=== PATIENT | female | born 1985 | race African-American/Black ===

== ENCOUNTER 2016-11-12 22:52 | Emergency (ER) | payer OTHER ==
[2016-11-13] MEDS ORDERED: CYCLOBENZAPRINE HCL 10 MG TABLET PO ONE (00:11)
[2016-11-13] MEDS ORDERED: IBUPROFEN 600 MG TABLET PO ONE (00:11)
[2016-11-13] MEDS ORDERED: LIDOCAINE 5% (700 MG) TRANSDERMAL ADH..PATCH TP ONE (00:11)
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
[2016-11-13 00:27] VITALS: BP 135/75
== END 2016-11-13 00:26 | disposition home or self-care (01) ==
LOC: ER 22:52
DX: M54.5 Low back pain (principal); V49.50XA Passenger injured in collision with unspecified motor vehicles in traffic accident, initial encounter
CPT/HCPCS: 99283

== ENCOUNTER 2017-11-01 13:18 | Emergency (ER) | payer OTHER ==
[2017-11-01] MEDS ORDERED: FAMOTIDINE 20 MG TABLET PO ONE (14:13)
[2017-11-01] MEDS ORDERED: DIPHENHYDRAMINE HCL 50 MG CAPSULE PO ONE (14:13)
[2017-11-01] MEDS ORDERED: PREDNISONE 20 MG TABLET PO ONE (14:13)
[2017-11-01] MEDS ORDERED: RINGERS SOLUTION,LACTATED 1,000 ML IV ONE (14:14)
--- NOTE | 2017-11-01 14:15 | ER Document Report ---
ED Medical Screen (RME) - General Chief Complaint: Near Syncope Stated Complaint: LIGHTHEADED Time Seen by Provider: 11/01/17 14:10 Notes: RAPID MEDICAL EVALUATION DISCLOSURE I have seen this patient as part of a Rapid Medical Evaluation and, if applicable, placed any initially appropriate orders. The patient will be seen and fully evaluated, including a full history and physical exam, by a provider ( in Main ED or Fast Track) when a room becomes available. 31-year-old female here with complaints of itching all over her body, nausea vomiting diarrhea, and lightheadedness that started 2 days ago. She does not know of anything new in her life that may be causing a possible allergic reaction. She has not tried anything for the symptoms. She has not had any full syncope. EXAM CTAB RRR Mild urticarial rash seen on legs TRAVEL OUTSIDE OF THE [place] IN LAST 30 DAYS: No - Related Data Allergies/Adverse Reactions: No Known Allergies Allergy (Verified 11/01/17 13:19) Past Medical History - Social History Chew tobacco use (# tins/day): No Frequency of alcohol use: None Drug Abuse: None Renal/ Medical History: Denies: Hx Peritoneal Dialysis Past Surgical History: Reports: Hx Section - x2 - Immunizations Immunizations up to date: Yes Hx Diphtheria, Pertussis, Tetanus Vaccination: Yes Physical Exam - Vital signs Vitals: Temp Pulse Resp BP Pulse Ox 97.9 F 81 16 102/53 L 100 11/01/17 13:30 11/01/17 13:30 11/01/17 13:30 11/01/17 13:30 11/01/17 13:30 Course - Vital Signs Vital signs: Temp Pulse Resp BP Pulse Ox 97.9 F 81 16 102/53 L 100 11/01/17 13:30 11/01/17 13:30 11/01/17 13:30 11/01/17 13:30 11/01/17 13:30
--- NOTE | 2017-11-01 15:44 | ER Document Report ---
ED General - General Chief Complaint: Near Syncope Stated Complaint: LIGHTHEADED Time Seen by Provider: 11/01/17 14:10 Notes: The patient is a 31-year-old female who presents with slightly lightheaded today. Over the past 2 days, the patient has had nausea and watery diarrhea. She says she does not feel like drinking any water due to the nausea. In addition, she is also having a pruritic rash. Patient takes a oral contraceptive pill, but still has 1-2 days of heavy vaginal bleeding at the beginning of her periods. She denies dark or bloody stools. The patient denies any new foods, new medications, trouble breathing, throat swelling, vomiting, flank pain, urinary symptoms, fevers, chest pain or tongue swelling. TRAVEL OUTSIDE OF THE [place] IN LAST 30 DAYS: No - Related Data Allergies/Adverse Reactions: No Known Allergies Allergy (Verified 11/01/17 13:19) Past Medical History - General Information source: Patient - Social History Smoking Status: Unknown if Ever Smoked Chew tobacco use (# tins/day): No Frequency of alcohol use: None Drug Abuse: None Family History: Reviewed & Not Pertinent Patient has suicidal ideation: No Patient has homicidal ideation: No Renal/ Medical History: Denies: Hx Peritoneal Dialysis Past Surgical History: Reports: Hx Section - x2 - Immunizations Immunizations up to date: Yes Hx Diphtheria, Pertussis, Tetanus Vaccination: Yes Review of Systems - Review of Systems Notes: REVIEW OF SYSTEMS: CONSTITUTIONAL: -fevers, -chills EENT: -eye pain, -difficulty swallowing, -nasal congestion CARDIOVASCULAR: -chest pain, -syncope. RESPIRATORY: -cough, -SOB GASTROINTESTINAL: -abdominal pain, +nausea, -vomiting, +watery diarrhea GENITOURINARY: -dysuria, -hematuria MUSCULOSKELETAL: -back pain, -neck pain SKIN: +pruritic rash HEMATOLOGIC: -easy bruising or bleeding. LYMPHATIC: -swollen, enlarged glands. NEUROLOGICAL: -altered mental status or loss of consciousness, -headache, - neurologic symptoms PSYCHIATRIC: -anxiety, -depression. ALL OTHER SYSTEMS REVIEWED AND NEGATIVE. Physical Exam - Vital signs Vitals: Temp Pulse Resp BP Pulse Ox 97.9 F 81 16 102/53 L 100 11/01/17 13:30 11/01/17 13:30 11/01/17 13:30 11/01/17 13:30 11/01/17 13:30 - Notes Notes: PHYSICAL EXAMINATION: GENERAL: Well-appearing, well-nourished and in no acute distress. HEAD: Atraumatic, normocephalic. EYES: Pupils equal round and reactive to light, extraocular movements intact, sclera anicteric, conjunctiva are pale. ENT: nares patent, oropharynx clear without exudates. Moist mucous membranes. NECK: Normal range of motion, supple without lymphadenopathy LUNGS: Breath sounds clear to auscultation bilaterally and equal. No wheezes rales or rhonchi. HEART: Regular rate and rhythm without murmurs ABDOMEN: Soft, nontender, normoactive bowel sounds. No guarding, no rebound. No masses appreciated. EXTREMITIES: Normal range of motion, no pitting or edema. No cyanosis. NEUROLOGICAL: Cranial nerves grossly intact. Normal speech, normal gait. Normal sensory and motor exams. PSYCH: Normal mood, normal affect. SKIN: Warm, Dry, normal turgor, no rashes or lesions noted. Course - Re-evaluation Re-evalutation: Patient with symptomatic iron deficiency anemia. She says she has heavy starts to her periods that last about 1-2 days, but she is not having any active vaginal bleeding, other than mild spotting now. She is already on a OCP. She denies dark or bloody stools. With her feeling of lightheadedness and a hemoglobin of 7.7, consented patient for a unit of PRBCs. She remains hemodynamically stable. Patient is tolerating fluids by mouth without nausea or vomiting and her abdomen is completely soft and nontender. Will discharge patient home with iron, Zofran and follow-up at sanding machine operator or tender and digital solution architect. - Vital Signs Vital signs: Temp Pulse Resp BP Pulse Ox 97.9 F 81 16 102/53 L 100 11/01/17 13:30 11/01/17 13:30 11/01/17 13:30 11/01/17 13:30 11/01/17 13:30 - Laboratory Result Diagrams: 11/01/17 15:56 11/01/17 15:56 Laboratory results interpreted by me: 11/01/17 11/01/17 11/01/17 15:56 15:56 16:00 Hgb 7.7 L Hct 26.6 L MCV 59 L MCH 17.2 L MCHC 29.0 L RDW 18.0 H Plt Count 529 H Monocytes % 13.9 H AST 63 H ALT 55 H Total Protein 8.3 H Urine Blood LARGE H Ur Leukocyte Esterase TRACE H Crossmatch 11/01/17 16:46 Hgb Hct MCV MCH MCHC RDW Plt Count Monocytes % AST ALT Total Protein Urine Blood Ur Leukocyte Esterase Crossmatch See Detail - EKG Interpretation by Me EKG shows normal: Sinus rhythm, [place], Intervals, QRS Complexes, ST-T Waves Rate: Normal When compared to previous EKG there are: No significant change Discharge - Discharge Clinical Impression: Symptomatic anemia, Urticarial rash, Nausea vomiting and diarrhea Iron deficiency anemia Qualifiers: Iron deficiency anemia type: unspecified iron deficiency Qualified Code(s): D50.9 - Iron deficiency anemia, unspecified Condition: Stable Disposition: HOME, SELF-CARE Additional Instructions: You must follow-up with a sanding machine operator or tender (Blood doctor) to have your symptoms rechecked. Take the iron pills with stool softener to help with your symptoms. Return to the ER if you notice heavy bleeding, began to feel worsening lightheadedness or you have any other concerns. Anemia, Iron Deficiency You have anemia (a lower than normal amount of red blood cells). Our tests show it's due to lack of iron in your body. In infants and children, iron deficiency is usually due to lack of iron in the diet. In adults, it's most often caused by blood loss (heavy periods or intestinal bleeding) or by . If the cause of iron deficiency is not clear, we evaluate for hidden intestinal bleeding. Another possible cause is failure to absorb iron properly. Iron-deficiency is treated with iron supplements. Iron pills can upset your stomach and cause constipation. Taking it with food decreases nausea. Expect the stool to become darker (but not black). Taking iron with a juice high in vitamin C (orange juice, tomato juice) increases absorption. You can increase your dietary iron by eating liver, oysters, and lean beef ; wheat germ, peas, and lentils; and molasses, dried prunes, spinach, and broccoli. Contact the doctor at once if you note black or tarry-looking stools, bloody vomiting, shortness of breath, chest pain, or faintness. Prescriptions: Ferrous Sulfate 325 mg PO TID 30 Days tablet Ondansetron [Zofran Odt 4 mg Tablet] 1 - 2 tab PO Q4H PRN #15 tab.rapdis PRN Reason: For Nausea/Vomiting Referrals: KEILA JOSEPH MD [ACTIVE STAFF] - Follow up as needed
[2017-11-01 16:10] LABS: ABSOLUTE EOSINOPHILS # (AUTO) 0.1 10^3/uL (0.0-0.6); ABSOLUTE LYMPHOCYTES (AUTO) 1.6 10^3/uL (0.5-4.7); ABSOLUTE MONOCYTES (AUTO) 0.8 10^3/uL (0.1-1.4); ABSOLUTE NEUT (AUTO) 3.3 10^3/uL (1.7-8.2); BASOPHILS % (AUTO) 0.9 % (0-2); EOSINOPHILS % (AUTO) 1.1 % (0-6); HEMATOCRIT 26.6 % (36.0-47.0); LYMPHOCYTES % (AUTO) 27.7 % (13-45); MEAN CORPUSCULAR HEMOGLOBIN 17.2 pg (27.0-33.4); MONOCYTES % (AUTO) 13.9 % (3-13); PLATELET COUNT 529 10^3/uL (150-450); RED BLOOD COUNT 4.49 10^6/uL (3.72-5.28); SEGMENTED NEUTROPHILS % (AUTO) 56.4 % (42-78); TOTAL CELLS COUNTED % (AUTO) 100 %; WHITE BLOOD COUNT 5.8 10^3/uL (4.0-10.5)
[2017-11-01 16:22] LABS: ALANINE AMINOTRANSFERASE 55 U/L (9-52); ALBUMIN 4.1 g/dL (3.5-5.0); ALKALINE PHOSPHATASE 94 U/L (38-126); ANION GAP 10 (5-19); ASPARTATE AMINO TRANSFERASE 63 U/L (14-36); BILIRUBIN,DIRECT 0.2 mg/dL (0.0-0.4); BILIRUBIN,TOTAL 0.2 mg/dL (0.2-1.3); BLOOD UREA NITROGEN 11 mg/dL (7-20); CALCIUM 9.3 mg/dL (8.4-10.2); CARBON DIOXIDE 26 mmol/L (22-30); CHLORIDE 104 mmol/L (98-107); GLUCOSE 103 mg/dL (75-110); POTASSIUM 4.3 mmol/L (3.6-5.0); SODIUM 139.5 mmol/L (137-145); TOTAL PROTEIN 8.3 g/dL (6.3-8.2)
[2017-11-01 16:24] LABS: AMORPHOUS SEDIMENT,URINE TRACE /HPF; APPEARANCE,URINE SLIGHTLY-CLOUDY; BILIRUBIN,URINE NEGATIVE (NEGATIVE); COLOR,URINE YELLOW; GLUCOSE, URINE NEGATIVE (NEGATIVE); KETONES,URINE NEGATIVE (NEGATIVE); LEUKOCYTE ESTERASE,URINE TRACE (NEGATIVE); NITRITE,URINE NEGATIVE (NEGATIVE); PROTEIN,URINE NEGATIVE (NEGATIVE); URINE SPECIFIC GRAVITY 1.015; UROBILINOGEN,URINE NEGATIVE mg/dL (<2.0)
[2017-11-01 16:24] LABS: HEMOGLOBIN 7.7 g/dL (12.0-15.5)
[2017-11-01 16:25] LABS: MEAN CORPUSCULAR VOLUME 59 fl (80-97)
[2017-11-01] MEDS ORDERED: NORMAL SALINE 250 ML IV PRN (16:27)
[2017-11-01 16:32] LABS: ANISOCYTOSIS 2+; HYPOCHROMASIA 3+; OVALOCYTES 1+; PLATELET CLUMPS PRESENT; PLATELET COMMENT INCREASED; POIKILOCYTOSIS 1+; POLYCHROMASIA 1+
--- NOTE | 2017-11-01 23:25 | EKG REPORT ---
SEVERITY:- NORMAL ECG - SINUS RHYTHM : Confirmed by: Flako Austin MD 01-Nov-2017 23:24:50
[2017-11-02 02:20] VITALS: BP 109/74
[2017-11-03 13:58] LABS: PATH REVIEW PATHOLOGIST REVIEWED
== END 2017-11-02 02:36 | disposition home or self-care (01) ==
LOC: ER 13:18
DX: D50.9 Iron deficiency anemia, unspecified (principal); L50.9 Urticaria, unspecified; R11.2 Nausea with vomiting, unspecified; R55 Syncope and collapse; R19.7 Diarrhea, unspecified
CPT/HCPCS: 93005; 99284; 96360; 86900; 86901; 36415; 36430; 86850; 86922; 83735; 84100; 85025; 81025; 80053; 81001; 86920; 93010; P9016; J7512; J7050; J7120

== ENCOUNTER 2018-05-03 16:35 | Emergency (ER) | payer OTHER ==
--- NOTE | 2018-05-03 17:38 | ER Document Report ---
ED Medical Screen (RME) - General Chief Complaint: Dizziness Stated Complaint: DIZZY Time Seen by Provider: 05/03/18 17:33 Notes: 32-year-old female patient with history of heavy periods. Has been feeling dizzy lightheaded, especially worse when she stands up quickly for the last 2-3 days. Is gotten worse since her period just started. She was transfused in October of this year for the same problem. Palpebral conjunctiva is pale as are the nailbeds. I have greeted and performed a rapid initial assessment of this patient. A comprehensive ED assessment and evaluation of the patient, analysis of test results and completion of the medical decision making process will be conducted by additional ED providers. TRAVEL OUTSIDE OF THE [place] IN LAST 30 DAYS: No - Related Data Allergies/Adverse Reactions: No Known Allergies Allergy (Verified 11/01/17 13:19) Past Medical History - Social History Frequency of alcohol use: None Drug Abuse: None Renal/ Medical History: Denies: Hx Peritoneal Dialysis Past Surgical History: Reports: Hx Section - x2 - Immunizations Immunizations up to date: Yes Hx Diphtheria, Pertussis, Tetanus Vaccination: Yes Physical Exam - Vital signs Vitals: Temp Pulse Resp BP Pulse Ox 98.0 F 69 16 127/75 H 100 05/03/18 16:39 05/03/18 16:39 05/03/18 16:39 05/03/18 16:39 05/03/18 16:39 Course - Vital Signs Vital signs: Temp Pulse Resp BP Pulse Ox 98.0 F 69 16 127/75 H 100 05/03/18 16:39 05/03/18 16:39 05/03/18 16:39 05/03/18 16:39 05/03/18 16:39
[2018-05-03 17:58] LABS: ABSOLUTE BASOPHILS # (AUTO) 0.1 10^3/uL (0.0-0.2); ABSOLUTE EOSINOPHILS # (AUTO) 0.2 10^3/uL (0.0-0.6); ABSOLUTE MONOCYTES (AUTO) 0.7 10^3/uL (0.1-1.4); ABSOLUTE NEUT (AUTO) 2.3 10^3/uL (1.7-8.2); BASOPHILS % (AUTO) 1.7 % (0-2); EOSINOPHILS % (AUTO) 3.9 % (0-6); HEMATOCRIT 35.8 % (36.0-47.0); HEMOGLOBIN 11.6 g/dL (12.0-15.5); LYMPHOCYTES % (AUTO) 37.9 % (13-45); MEAN CORPUSCULAR HEMOGLOBIN 25.3 pg (27.0-33.4); MEAN CORPUSCULAR HGB CONC 32.3 g/dL (32.0-36.0); MEAN CORPUSCULAR VOLUME 78 fl (80-97); MONOCYTES % (AUTO) 13.8 % (3-13); PLATELET COUNT 361 10^3/uL (150-450); RED BLOOD COUNT 4.58 10^6/uL (3.72-5.28); RED CELL DISTRIBUTION WIDTH 18.8 % (11.5-14.0); SEGMENTED NEUTROPHILS % (AUTO) 42.7 % (42-78); TOTAL CELLS COUNTED % (AUTO) 100 %; WHITE BLOOD COUNT 5.3 10^3/uL (4.0-10.5)
[2018-05-03 19:35] LABS: ALANINE AMINOTRANSFERASE 73 U/L (9-52); ALBUMIN 4.3 g/dL (3.5-5.0); ALKALINE PHOSPHATASE 132 U/L (38-126); ANION GAP 13 (5-19); ASPARTATE AMINO TRANSFERASE 74 U/L (14-36); BILIRUBIN,DIRECT 0.2 mg/dL (0.0-0.4); BILIRUBIN,TOTAL 0.2 mg/dL (0.2-1.3); BLOOD UREA NITROGEN 15 mg/dL (7-20); CALCIUM 9.6 mg/dL (8.4-10.2); CARBON DIOXIDE 26 mmol/L (22-30); CHLORIDE 103 mmol/L (98-107); GLUCOSE 94 mg/dL (75-110); POTASSIUM 4.5 mmol/L (3.6-5.0); SODIUM 141.9 mmol/L (137-145); TOTAL PROTEIN 8.5 g/dL (6.3-8.2)
--- NOTE | 2018-05-03 22:11 | RADIOLOGY REPORT (SQ) ---
EXAM DESCRIPTION: US ABDOMEN LIMITED COMPLETED DATE/TME: 05/03/2018 19:46 CLINICAL HISTORY: 32 years Female upper abdominal pain COMPARISON: None. TECHNIQUE: Transabdominal grayscale imaging performed to evaluate the abdomen. FINDINGS: Pancreas appears unremarkable. Liver is prominent measuring 19.3 cm. No focal lesion. IVC is patent. Patent hepatopedal portal vein. Unremarkable gallbladder without sludge or stones. Common duct measures 2 mm. Right kidney is unremarkable. IMPRESSION: Mildly enlarged liver No acute process in the Right upper quadrant
[2018-05-03 22:37] VITALS: BP 114/68
--- NOTE | 2018-05-03 22:37 | ER Document Report ---
ED General - General Chief Complaint: Dizziness Stated Complaint: DIZZY Time Seen by Provider: 05/03/18 17:33 Mode of Arrival: Ambulatory Information source: Patient Notes: 32-year-old female with a history of fibroids and anemia (requiring transfusions in past) presents to the emergency room with weakness and dizziness for the past 2 days. She is followed by primary care doctor (Dr. Pepper) at [facility]. She has an appointment with the supervisor blueprinting and photocopy next week. She states she started her period yesterday. She does have concerns that her blood counts have gotten lower because she has been weak. She does report being in a lot of stress lately. TRAVEL OUTSIDE OF THE [place] IN LAST 30 DAYS: No - HPI Onset: Last week Onset/Duration: Gradual Quality of pain: No pain Severity: None Pain Level: Denies Associated symptoms: denies: Chest pain, Fever, Nausea, Vomiting, Shortness of breath Exacerbated by: Denies Relieved by: Denies Similar symptoms previously: Yes Recently seen / treated by doctor: No - Related Data Allergies/Adverse Reactions: No Known Allergies Allergy (Verified 11/01/17 13:19) Past Medical History - General Information source: Patient - Social History Smoking Status: Never Smoker Cigarette use (# per day): No Chew tobacco use (# tins/day): No Frequency of alcohol use: None Drug Abuse: None Lives with: Family Family History: Reviewed & Not Pertinent Patient has suicidal ideation: No Patient has homicidal ideation: No - Past Medical History Cardiac Medical History: Reports: None Pulmonary Medical History: Reports: None EENT Medical History: Reports: None Neurological Medical History: Reports: None Endocrine Medical History: Reports: None Renal/ Medical History: Reports: None. Denies: Hx Peritoneal Dialysis Malignancy Medical History: Reports: None GI Medical History: Reports: None Musculoskeletal Medical History: Reports None Skin Medical History: Reports None Psychiatric Medical History: Reports: None Past Surgical History: Reports: Hx Section - x2 - Immunizations Immunizations up to date: Yes Hx Diphtheria, Pertussis, Tetanus Vaccination: Yes Review of Systems - Review of Systems Constitutional: denies: Chills, Fever EENT: No symptoms reported Cardiovascular: No symptoms reported Respiratory: No symptoms reported Gastrointestinal: No symptoms reported Genitourinary: No symptoms reported Female Genitourinary: No symptoms reported Musculoskeletal: No symptoms reported Skin: No symptoms reported Hematologic/Lymphatic: No symptoms reported Neurological/Psychological: See HPI Physical Exam - Vital signs Vitals: Temp Pulse Resp BP Pulse Ox 98.0 F 69 16 127/75 H 100 05/03/18 16:39 05/03/18 16:39 05/03/18 16:39 05/03/18 16:39 05/03/18 16:39 Notes: Physical exam: GENERAL: 32-year-old female, alert and oriented x3, no acute distress HEAD: Atraumatic, normocephalic. EYES: Pupils equal round and reactive to light, extraocular movements intact, sclera anicteric, conjunctiva are normal. ENT: TMs normal, nares patent, oropharynx clear without exudates. Moist mucous membranes. NECK: Normal range of motion, supple without obvious mass or JVD. LUNGS: Breath sounds clear to auscultation bilaterally and equal. No wheezes rales or rhonchi. HEART: Regular rate and rhythm without murmurs, rubs or gallops. ABDOMEN: Soft, normoactive bowel sounds. No tenderness to palpation. No guarding, no rebound. No masses appreciated. EXTREMITIES: Normal range of motion, no pitting or edema. No clubbing or cyanosis. NEUROLOGICAL: Cranial nerves II through XII grossly intact. Normal speech, moving all extremities. PSYCH: Normal mood, normal affect. SKIN: Warm, Dry, normal turgor, no rashes or lesions noted. Course - Re-evaluation Re-evalutation: 05/03/18 22:34 Note: I did discuss the report labs with the patient. Her H&H is stable at this time. Her vital signs are stable she looks good. Her labs do show a mild elevation in some of the liver function tests which I see she is had in the past. She did state that she has been told she has gallstones in the past. There was an ultrasound and the report a number of years ago (2012) that was normal. We did get a right upper quadrant ultrasound today and it looked good. I will have her follow-up with her supervisor blueprinting and photocopy this week and give her a copy of all the lab tests and ultrasound report. - Vital Signs Vital signs: Temp Pulse Resp BP Pulse Ox 98.4 F 70 14 114/68 100 05/03/18 22:36 05/03/18 22:36 11/26/18 22:36 05/03/18 22:36 05/03/18 22:36 - Laboratory Result Diagrams: 05/03/18 17:45 05/03/18 18:50 Laboratory results interpreted by me: 05/03/18 05/03/18 17:45 18:50 Hgb 11.6 L Hct 35.8 L MCV 78 L MCH 25.3 L RDW 18.8 H Monocytes % 13.8 H AST 74 H ALT 73 H Alkaline Phosphatase 132 H Total Protein 8.5 H - Diagnostic Test Radiology reviewed: Image reviewed, Reports reviewed - Abdominal ultrasound shows no evidence of gallbladder disease Discharge - Discharge Clinical Impression: Weakness Condition: Stable Disposition: HOME, SELF-CARE Instructions: Dizziness ([facility]) Additional Instructions: As we discussed, your anemia studies look good tonight but the going to need to be followed with your menstrual cycle. You did have mild elevation of some of the liver function tests which have been noted to be elevated in the past. The ultrasound of the gallbladder showed no evidence of gallstones. I do want you to follow-up with your primary care doctor: Bring a copy of today' s lab tests with you when you go. Return to the ER for worsening weakness or dizziness or abdominal pain or any concerns or getting worse. Forms: Return to Work
== END 2018-05-03 23:05 | disposition home or self-care (01) ==
LOC: ER 16:35
DX: R53.1 Weakness (principal); R42 Dizziness and giddiness; R79.89 Other specified abnormal findings of blood chemistry; Z86.2 Personal history of diseases of the blood and blood-forming organs and certain disorders involving the immune mechanism
CPT/HCPCS: 36415; 76705; 80053; 85025; 86850; 86900; 86901; 99284

== ENCOUNTER 2018-08-30 10:15 | Emergency (ER) | payer OTHER ==
[2018-08-30] MEDS ORDERED: ACETAMINOPHEN 325 MG TABLET PO ONE (11:32)
[2018-08-30] MEDS ORDERED: CETIRIZINE 10 MG TABLET PO ONE (11:32)
--- NOTE | 2018-08-30 11:59 | ER Document Report ---
HPI - HPI Time Seen by Provider: 08/30/18 11:15 Pain Level: 3 Context: Patient is a 32-year-old female who presents the emergency department with a chief complaint of a sore throat and a hoarse voice. She states that her symptoms started a few days ago. She has had a runny nose, sore throat, and cough. She denies any fever. She has been attempting to drink some hot tea, Chloraseptic spray, and salt water gargles to help with her symptoms. She states that she has had some improvement. Her daughter was sick with a cold a few days ago. - CONSTITUTIONAL Constitutional: DENIES: Fever, Chills - EENT EENT: REPORTS: Sore Throat, Nasal Drainage-Clear, Congestion - NEURO Neurology: REPORTS: Headache - RESPIRATORY Respiratory: REPORTS: Coughing - REPRODUCTIVE Reproductive: DENIES: : - DERM Skin Color: Normal Skin Problems: None Past Medical History - General Information source: Patient - Social History Smoking Status: Unknown if Ever Smoked Family History: Reviewed & Not Pertinent Renal/ Medical History: Denies: Hx Peritoneal Dialysis Past Surgical History: Reports: Hx Section - x2 - Immunizations Immunizations up to date: Yes Hx Diphtheria, Pertussis, Tetanus Vaccination: Yes Vertical Provider Document - CONSTITUTIONAL Agree With Documented VS: Yes Exam Limitations: No Limitations General Appearance: No Apparent Distress - INFECTION CONTROL TRAVEL OUTSIDE OF THE [place] IN LAST 30 DAYS: No - HEENT HEENT: Atraumatic, Normocephalic - RESPIRATORY Respiratory: Breath Sounds Normal, No Respiratory Distress - CARDIOVASCULAR Cardiovascular: Regular Rate, Regular Rhythm Pulses: Normal: Radial - MUSCULOSKELETAL/EXTREMETIES Musculoskeletal/Extremeties: FROM - NEURO Level of Consciousness: Awake, Alert, Appropriate Motor/Sensory: No Motor Deficit, No Sensory Deficit - DERM Integumentary: Warm, Dry Course - Re-evaluation Re-evalutation: 08/30/18 11:59 Rapid strep will be done to rule out strep pharyngitis. She also be given cetirizine and Tylenol to help with her symptoms. She does have erythema noted to her nasal mucosa. She will be given Flonase to go home with. Her uvula is midline. I do not suspect a peritonsillar abscess. - Vital Signs Vital signs: Temp Pulse Resp BP Pulse Ox 98.2 F 79 16 119/75 98 08/30/18 10:18 08/30/18 10:18 08/30/18 10:18 08/30/18 10:18 08/30/18 10:18 Discharge - Discharge Clinical Impression: Sore throat Condition: Stable Disposition: HOME, SELF-CARE Additional Instructions: You were seen today in the emergency department for a sore throat. You have an upper respiratory viral infection. You may also have allergies due to the pollen in the area. You have been given cetirizine and Flonase to help with your symptoms. You may take these medications while your symptoms persist. You can take ibuprofen 600 mg and acetaminophen 1000 mg every 6 hours as needed for pain. Please continue to drink hot tea and gargle with warm salt water. Please follow-up with your primary care provider in regards to this visit. If you develop difficulty breathing, shortness of breath, are unable to swallow, or have any symptoms that are worrisome to you, please return to the emergency department. Prescriptions: Cetirizine HCl [All Day Allergy] 10 mg PO DAILY #30 tablet Fluticasone Propionate [Flonase Nasal [place] 50 Mcg/[place] 16 gm] 2 sprays NASL Q12 #1 inhaler Forms: Return to Work
[2018-08-30 12:42] VITALS: BP 123/70
== END 2018-08-30 12:44 | disposition home or self-care (01) ==
LOC: ER 10:15
DX: J02.9 Acute pharyngitis, unspecified (principal); R49.0 Dysphonia; R09.89 Other specified symptoms and signs involving the circulatory and respiratory systems; R05 Cough; R51 Headache
CPT/HCPCS: 87070; 87880; 99283

== ENCOUNTER 2018-11-30 17:12 | Emergency (ER) | payer OTHER ==
[2018-11-30] MEDS ORDERED: NORMAL SALINE 1000 ML 1,000 ML IV ONE (18:09)
[2018-11-30] MEDS ORDERED: ACETAMINOPHEN 325 MG TABLET PO ONE (18:09)
--- NOTE | 2018-11-30 18:10 | ER Document Report ---
ED Medical Screen (RME) - General Chief Complaint: Vaginal Bleeding Stated Complaint: VAGINAL BLEEDING Time Seen by Provider: 11/30/18 18:06 Mode of Arrival: Ambulatory Information source: Patient Notes: Patient presents complaining of heavy vaginal bleeding that started yesterday. Patient reports feeling lightheaded dizzy. Patient is tachycardic in triage. Patient does complain of a headache. Patient states she does have anemia and has had to have transfusions in the past. I have greeted and performed a rapid initial assessment of this patient. A comprehensive ED assessment and evaluation of the patient, analysis of test results and completion of the medical decision making process will be conducted by additional ED providers. TRAVEL OUTSIDE OF THE [place] IN LAST 30 DAYS: No - Related Data Allergies/Adverse Reactions: No Known Allergies Allergy (Verified 11/30/18 17:12) Past Medical History - General Last Menstrual Period: now - Social History Chew tobacco use (# tins/day): No Drug Abuse: None Renal/ Medical History: Denies: Hx Peritoneal Dialysis Past Surgical History: Reports: Hx Section - x2 - Immunizations Immunizations up to date: Yes Hx Diphtheria, Pertussis, Tetanus Vaccination: Yes Physical Exam - Vital signs Vitals: Temp Pulse Resp BP Pulse Ox 99.3 F 117 H 18 139/70 H 99 11/30/18 17:24 11/30/18 17:24 11/30/18 17:24 11/30/18 17:24 11/30/18 17:24 - General General appearance: Alert Notes: Patient pale, tachycardic Course - Vital Signs Vital signs: Temp Pulse Resp BP Pulse Ox 99.3 F 117 H 18 139/70 H 99 11/30/18 17:24 11/30/18 17:24 11/30/18 17:24 11/30/18 17:24 11/30/18 17:24
[2018-11-30 20:20] LABS: ABSOLUTE BASOPHILS # (AUTO) 0.1 10^3/uL (0.0-0.2); ABSOLUTE EOSINOPHILS # (AUTO) 0.2 10^3/uL (0.0-0.6); ABSOLUTE LYMPHOCYTES (AUTO) 1.9 10^3/uL (0.5-4.7); ABSOLUTE MONOCYTES (AUTO) 0.6 10^3/uL (0.1-1.4); ABSOLUTE NEUT (AUTO) 3.6 10^3/uL (1.7-8.2); EOSINOPHILS % (AUTO) 2.5 % (0-6); HEMATOCRIT 22.8 % (36.0-47.0); LYMPHOCYTES % (AUTO) 30.2 % (13-45); MEAN CORPUSCULAR HEMOGLOBIN 27.1 pg (27.0-33.4); MEAN CORPUSCULAR HGB CONC 33.5 g/dL (32.0-36.0); MEAN CORPUSCULAR VOLUME 81 fl (80-97); MONOCYTES % (AUTO) 10.1 % (3-13); PLATELET COUNT 318 10^3/uL (150-450); RED BLOOD COUNT 2.82 10^6/uL (3.72-5.28); RED CELL DISTRIBUTION WIDTH 14.2 % (11.5-14.0); SEGMENTED NEUTROPHILS % (AUTO) 56.2 % (42-78); TOTAL CELLS COUNTED % (AUTO) 100 %; WHITE BLOOD COUNT 6.4 10^3/uL (4.0-10.5)
[2018-11-30 20:24] LABS: HEMOGLOBIN 7.7 g/dL (12.0-15.5)
--- NOTE | 2018-11-30 20:28 | EKG REPORT ---
SEVERITY:- NORMAL ECG - SINUS RHYTHM : Confirmed by: Kelton Francis 30-Nov-2018 20:27:43
[2018-11-30] MEDS ORDERED: NORMAL SALINE 250 ML IV PRN ×2 (20:37)
[2018-11-30 20:38] LABS: ALANINE AMINOTRANSFERASE 63 U/L (9-52); ALBUMIN 3.9 g/dL (3.5-5.0); ALKALINE PHOSPHATASE 97 U/L (38-126); ANION GAP 8 (5-19); ASPARTATE AMINO TRANSFERASE 71 U/L (14-36); BILIRUBIN,DIRECT 0.3 mg/dL (0.0-0.4); BILIRUBIN,TOTAL 0.3 mg/dL (0.2-1.3); BLOOD UREA NITROGEN 12 mg/dL (7-20); CALCIUM 8.9 mg/dL (8.4-10.2); CARBON DIOXIDE 27 mmol/L (22-30); CHLORIDE 102 mmol/L (98-107); GLUCOSE 96 mg/dL (75-110); POTASSIUM 4.2 mmol/L (3.6-5.0); SODIUM 136.8 mmol/L (137-145); TOTAL PROTEIN 7.7 g/dL (6.3-8.2)
[2018-11-30] MEDS ORDERED: METOCLOPRAMIDE HCL INJ/PF 10 MG/2 ML SDV IV ONE ×2 (20:38→22:00)
--- NOTE | 2018-11-30 20:42 | ER Document Report ---
ED GI/ - General Chief Complaint: Vaginal Bleeding Stated Complaint: VAGINAL BLEEDING Time Seen by Provider: 11/30/18 18:06 Primary Care Provider: TORY HUERTA DO [Primary Care Provider] - Follow up as needed Mode of Arrival: Ambulatory Notes: Patient is a 32-year-old female that comes to the emergency department for chief complaint of heavy vaginal bleeding with dizziness. She states she started bleeding the day before yesterday, bled through a whole pack of pads at home yesterday. She denies passing out. She states she has had heavy vaginal bleeding in the past, she is on ParaGard contraceptive at this time, she has never bled like this on ParaGard. She saw [facility], she was supposed to be seen again soon to have her contraceptive switched and to get iron. Past medical history of c-sections as well, denies any other medical history. TRAVEL OUTSIDE OF THE [place] IN LAST 30 DAYS: No - Related Data Allergies/Adverse Reactions: No Known Allergies Allergy (Verified 11/30/18 17:12) Past Medical History - General Information source: Patient Last Menstrual Period: now - Social History Smoking Status: Never Smoker Chew tobacco use (# tins/day): No Drug Abuse: None Lives with: Family Family History: Reviewed & Not Pertinent Patient has suicidal ideation: No Patient has homicidal ideation: No Renal/ Medical History: Denies: Hx Peritoneal Dialysis Past Surgical History: Reports: Hx Section - x2 - Immunizations Immunizations up to date: Yes Hx Diphtheria, Pertussis, Tetanus Vaccination: Yes Review of Systems - Review of Systems Constitutional: See HPI EENT: No symptoms reported Cardiovascular: See HPI Respiratory: No symptoms reported Gastrointestinal: No symptoms reported Genitourinary: No symptoms reported Female Genitourinary: See HPI Musculoskeletal: No symptoms reported Skin: No symptoms reported Hematologic/Lymphatic: No symptoms reported Neurological/Psychological: No symptoms reported Physical Exam - Vital signs Vitals: Temp Pulse Resp BP Pulse Ox 99.3 F 117 H 18 139/70 H 99 11/30/18 17:24 11/30/18 17:24 11/30/18 17:24 11/30/18 17:24 11/30/18 17:24 - Notes Notes: GENERAL: Alert, interacts well. No acute distress. HEAD: Normocephalic, atraumatic. EYES: Pupils equal, round, and reactive to light. Extraocular movements intact. ENT: Oral mucosa moist, tongue midline. Oropharynx unremarkable. Airway patent. Nares patent, no nasal septal hematoma, TM's intact. NECK: Full range of motion. Supple. Trachea midline. LUNGS: Clear to auscultation bilaterally, no wheezes, rales, or rhonchi. No respiratory distress. HEART: Borderline tachycardia, normal rhythm. No murmur ABDOMEN: Soft, non-tender. Non-distended. Bowel sounds present in all 4 quadrants. GENITOURINARY: Moderate amount of vaginal bleeding with some clots as well. Otherwise unremarkable exam, no cervical motion tenderness, no lesions. Exam performed with [employer] PCT at bedside. EXTREMITIES: Moves all 4 extremities spontaneously. No edema, normal radial and dorsalis pedis pulses bilaterally. No cyanosis. BACK: no cervical, thoracic, lumbar midline tenderness. No saddle anesthesia, normal distal neurovascular exam. Moves all extremities in full range of motion. NEUROLOGICAL: Alert and oriented x3. Normal speech. Cranial nerves II through XII grossly intact. PSYCH: Normal affect, normal mood. SKIN: Warm, dry, normal turgor. No rashes or lesions noted. Course - Re-evaluation Re-evalutation: On initial evaluation patient is bleeding with a moderate flow and some blood clots. Her abdomen is benign. She was initially tachycardic, however she was given IV fluid bolus and this resolved. Hemoglobin is 7.7, she will be transfused. Patient was given TXA because of current bleeding along with symptomatic anemia requiring transfusion. On reevaluation patient is stopped bleeding after the TXA. Patient reevaluated again, she feels much improved now that she has been hydrated and is receiving blood. She still is not bleeding. Ultrasound without concerning findings at this time. Hemoglobin increased up to 8.3, there was I suspect some dilution from the normal saline. Patient is asymptomatic now. She still is not bleeding again. I discussed with patient. She does have close follow-up with [facility] at [facility], she will be started on iron, follow-up closely for additional control options, and return if she worsens. Patient states understanding and agreement. - Vital Signs Vital signs: Temp Pulse Resp BP Pulse Ox 98.6 F 86 16 120/62 98 12/01/18 04:07 12/01/18 04:10 12/01/18 06:01 12/01/18 06:00 12/01/18 06:01 - Laboratory Result Diagrams: 12/01/18 06:08 11/30/18 19:45 Laboratory results interpreted by me: 11/30/18 11/30/18 11/30/18 19:45 19:45 20:49 RBC 2.82 L Hgb 7.7 L Hct 22.8 L RDW 14.2 H Sodium 136.8 L AST 71 H ALT 63 H Crossmatch See Detail 11/30/18 12/01/18 21:23 06:08 RBC 3.00 L Hgb 8.3 L Hct 24.6 L RDW 14.5 H Sodium AST ALT Crossmatch See Detail Discharge - Discharge Clinical Impression: Symptomatic anemia, Vaginal bleeding Condition: Stable Disposition: HOME, SELF-CARE Additional Instructions: You have been transfused tonight because of low hemoglobin. Take the iron as prescribed. Follow-up closely with [employer]CH[employer]IC for additional evaluation and management. Return if you worsen including return to heavy bleeding, passing out, severe abdominal pain, difficulty breathing, or any other concerning symptoms. Prescriptions: Ferrous Sulfate [Iron] 325 mg PO TID #30 tablet Referrals: TORY HUERTA DO [Primary Care Provider] - Follow up as needed
[2018-11-30] MEDS ORDERED: TRANEXAMIC ACID INJ/PF 1,000 MG/10 ML SDV IV ONE (21:18)
--- NOTE | 2018-11-30 22:56 | RADIOLOGY REPORT (SQ) ---
EXAM DESCRIPTION: US PELVIS TRANSVAGINAL COMPLETED DATE/TME: 11/30/2018 21:19 CLINICAL HISTORY: 32 years, Female, heavy vaginal bleeding COMPARISON: None. TECHNIQUE: Transverse and longitudinal transvaginal sonographic images of the pelvis LIMITATIONS: None. FINDINGS: The uterus measures 8.2 x 6.1 x 5.9 cm. The endometrium measures 3.5 mm in thickness. IUD partially visualized within the endometrial canal. Right ovary measures 2.2 x 1.6 x 2.3 cm, the left 3.9 x 2.6 x 2.7 cm. Arterial and venous flow to both ovaries. Simple appearing left ovarian cyst consistent with dominant follicle measuring 2.0 x 2.1 x 2.0 cm. No solid adnexal mass. No free fluid IMPRESSION: IUD in place. Dominant follicle of the left ovary requires no further imaging/workup. Recommendations for f/u of ovarian anechoic simple cyst, simple cyst with single thin <3 mm septation, or focal calcification in wall of cyst (1): Pre-menopause: <= 5 cm No follow-up imaging recommended >5 cm - <=7 cm US f/u annually >7 cm Consider MR w/IVC or surgical evaluation Post-menopause (>=1 year from last menstrual period): <=3 cm No follow-up imaging recommended >3 cm - <=7 cm US f/u annually >7 cm Consider MR w/IVC or surgical evaluation (1) Recommendations based on 2010 SRU Consensus Conference Statement on the Management of Asymptomatic Ovarian and Other Adnexal Cysts Imaged at US: Radiology. 2009;256(3):948-89 copyright 2010 [employer]- All Rights Reserved
[2018-12-01 06:23] LABS: HEMATOCRIT 24.6 % (36.0-47.0); HEMOGLOBIN 8.3 g/dL (12.0-15.5); MEAN CORPUSCULAR HEMOGLOBIN 27.6 pg (27.0-33.4); MEAN CORPUSCULAR HGB CONC 33.6 g/dL (32.0-36.0); MEAN CORPUSCULAR VOLUME 82 fl (80-97); PLATELET COUNT 283 10^3/uL (150-450); RED CELL DISTRIBUTION WIDTH 14.5 % (11.5-14.0); WHITE BLOOD COUNT 5.2 10^3/uL (4.0-10.5)
[2018-12-01 06:29] VITALS: BP 120/62
== END 2018-12-01 06:20 | disposition home or self-care (01) ==
LOC: ER 17:12
DX: D64.89 Other specified anemias (principal); N93.8 Other specified abnormal uterine and vaginal bleeding; R42 Dizziness and giddiness; Z97.5 Presence of (intrauterine) contraceptive device
CPT/HCPCS: 93005; 99284; 96361; 96374; 96375; 86900; 86901; 36415; 36430; 86850; 84703; 85025; 85027; 80053; 86920; 76830; 93976; 93010; P9016; J2765; J7050; J3490

== ENCOUNTER 2019-04-04 18:42 | Emergency (ER) | payer OTHER ==
[2019-04-04] MEDS ORDERED: ACETAMINOPHEN 325 MG TABLET PO ONE (19:02)
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
[2019-04-04] MEDS ORDERED: KETOROLAC TROMETHAMINE 60 MG/2 ML SDV IM ONE (22:39)
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
[2019-04-05 00:08] VITALS: BP 117/55
== END 2019-04-05 00:06 | disposition home or self-care (01) ==
LOC: ER 18:42
DX: S16.1XXA Strain of muscle, fascia and tendon at neck level, initial encounter (principal); M54.2 Cervicalgia; M54.5 Low back pain; R42 Dizziness and giddiness; V49.50XA Passenger injured in collision with unspecified motor vehicles in traffic accident, initial encounter
CPT/HCPCS: 99284; 96374; 72125; J1885

== ENCOUNTER 2020-06-17 12:36 | Emergency (ER) | payer OTHER ==
--- NOTE | 2020-06-17 13:50 | ER Document Report ---
ED Medical Screen (RME) - General Chief Complaint: Headache Stated Complaint: LIGHTHEADED,HEADACHE Time Seen by Provider: 06/17/20 13:44 Primary Care Provider: TORY HUERTA DO [Primary Care Provider] - Follow up as needed Notes: HPI: 34-year-old female with history of anemia presenting for lightheadedness over the last 2 or 3 days. Mild shortness of breath. No chest pain no abdominal pain no nausea no vomiting. Patient states that when she changes position she does feel more lightheaded. No vision change no headache PHYSICAL EXAMINATION: Patient is mildly pale. She is answering all questions appropriately. Lung sounds are clear to auscultation. No abdominal pain on palpation I have greeted and performed a rapid initial assessment of this patient. A comprehensive ED assessment and evaluation of the patient, analysis of test results and completion of medical decision making process will be conducted by an additional ED providers. Please note that clinical decision making for this patient was made during the 2019 pandemic of novel coronavirus which caused a significant strain on the healthcare system including at this particular facility. Criteria for admission discharge and level of care decisions as well as treatment decisions have necessarily changed TRAVEL OUTSIDE OF THE [place] IN LAST 30 DAYS: No - Related Data Allergies/Adverse Reactions: No Known Allergies Allergy (Verified 11/30/18 17:12) Past Medical History Renal/ Medical History: Denies: Hx Peritoneal Dialysis Past Surgical History: Reports: Hx Section - x2 - Immunizations Immunizations up to date: Yes Hx Diphtheria, Pertussis, Tetanus Vaccination: Yes Physical Exam - Vital signs Vitals: Temp Pulse Resp BP Pulse Ox 98.3 F 79 16 131/74 H 100 06/17/20 12:42 06/17/20 12:42 06/17/20 12:42 06/17/20 12:42 06/17/20 12:42 Course - Vital Signs Vital signs: Temp Pulse Resp BP Pulse Ox 98.3 F 79 16 131/74 H 100 06/17/20 12:42 06/17/20 12:42 06/17/20 12:42 06/17/20 12:42 06/17/20 12:42 Doctor's Discharge - Discharge Referrals: TORY HUERTA DO [Primary Care Provider] - Follow up as needed
[2020-06-17 14:53] LABS: ABSOLUTE BASOPHILS # (AUTO) 0.1 10^3/uL (0.0-0.2); ABSOLUTE EOSINOPHILS # (AUTO) 0.1 10^3/uL (0.0-0.6); ABSOLUTE LYMPHOCYTES (AUTO) 1.5 10^3/uL (0.5-4.7); ABSOLUTE MONOCYTES (AUTO) 0.5 10^3/uL (0.1-1.4); ABSOLUTE NEUT (AUTO) 2.1 10^3/uL (1.7-8.2); BASOPHILS % (AUTO) 1.2 % (0-2); EOSINOPHILS % (AUTO) 2.7 % (0-6); HEMATOCRIT 33.6 % (36.0-47.0); LYMPHOCYTES % (AUTO) 35.7 % (13-45); MEAN CORPUSCULAR HEMOGLOBIN 26.5 pg (27.0-33.4); MEAN CORPUSCULAR HGB CONC 32.6 g/dL (32.0-36.0); MEAN CORPUSCULAR VOLUME 82 fl (80-97); MONOCYTES % (AUTO) 11.5 % (3-13); PLATELET COUNT 366 10^3/uL (150-450); RED BLOOD COUNT 4.13 10^6/uL (3.72-5.28); RED CELL DISTRIBUTION WIDTH 13.4 % (11.5-14.0); SEGMENTED NEUTROPHILS % (AUTO) 48.9 % (42-78); TOTAL CELLS COUNTED % (AUTO) 100 %; WHITE BLOOD COUNT 4.3 10^3/uL (4.0-10.5)
[2020-06-17 15:00] LABS: APPEARANCE,URINE CLOUDY; BILIRUBIN,URINE NEGATIVE (NEGATIVE); GLUCOSE, URINE NEGATIVE (NEGATIVE); KETONES,URINE NEGATIVE (NEGATIVE); LEUKOCYTE ESTERASE,URINE TRACE (NEGATIVE); NITRITE,URINE NEGATIVE (NEGATIVE); PROTEIN,URINE NEGATIVE (NEGATIVE); URINE SPECIFIC GRAVITY 1.016; UROBILINOGEN,URINE NEGATIVE mg/dL (<2.0)
[2020-06-17 15:02] LABS: COLOR,URINE DARK YELLOW
[2020-06-17 15:12] LABS: ALBUMIN 4.4 g/dL (3.5-5.0); ALKALINE PHOSPHATASE 73 U/L (38-126); ANION GAP 7 (5-19); ASPARTATE AMINO TRANSFERASE 35 U/L (14-36); BILIRUBIN,DIRECT 0.3 mg/dL (0.0-0.4); BILIRUBIN,TOTAL 0.3 mg/dL (0.2-1.3); BLOOD UREA NITROGEN 18 mg/dL (7-20); CALCIUM 9.1 mg/dL (8.4-10.2); CARBON DIOXIDE 28 mmol/L (22-30); CHLORIDE 104 mmol/L (98-107); GLUCOSE 88 mg/dL (75-110); POTASSIUM 4.5 mmol/L (3.6-5.0); TOTAL PROTEIN 8.3 g/dL (6.3-8.2)
--- NOTE | 2020-06-17 16:03 | ER Document Report ---
ED General - General Chief Complaint: Headache Stated Complaint: LIGHTHEADED,HEADACHE Time Seen by Provider: 06/17/20 13:44 Primary Care Provider: TORY HUERTA DO [Primary Care Provider] - Follow up as needed Mode of Arrival: Ambulatory Information source: Patient Notes: This 34-year-old woman presents to the emergency department with a 2-day history of dizziness. She states that she felt that it may be related to poor fluid intake, she has been pushing water and trying to rehydrate, however, her symptoms have continued. She states that at first it was positional related dizziness but now she is dizzy while stationary. She has had a history of iron deficiency and anemia in the past she has been transfused on 2 separate occasions. She states that she has had continued to have heavy menstrual periods. TRAVEL OUTSIDE OF THE [place] IN LAST 30 DAYS: No - Related Data Allergies/Adverse Reactions: No Known Allergies Allergy (Verified 11/30/18 17:12) Past Medical History - Social History Smoking Status: Never Smoker Chew tobacco use (# tins/day): No Frequency of alcohol use: None Family History: Reviewed & Not Pertinent Patient has homicidal ideation: No Renal/ Medical History: Denies: Hx Peritoneal Dialysis Past Surgical History: Reports: Hx Section - x2 - Immunizations Immunizations up to date: Yes Hx Diphtheria, Pertussis, Tetanus Vaccination: Yes Review of Systems - Review of Systems Notes: [address] up paresthesias. Renal failure 5 minutes constitutional: Negative for fever. HENT: Negative for sore throat. Eyes: Negative for visual changes. Cardiovascular: Negative for chest pain. Respiratory: Negative for shortness of breath. Gastrointestinal: Negative for abdominal pain, vomiting or diarrhea. Genitourinary: Negative for dysuria. Musculoskeletal: Negative for back pain. Skin: Negative for rash. Neurological: See HPI 10 point ROS negative except as marked above and in HPI. Physical Exam - Vital signs Vitals: Temp Pulse Resp BP Pulse Ox 98.3 F 79 16 131/74 H 100 06/17/20 12:42 06/17/20 12:42 06/17/20 12:42 06/17/20 12:42 06/17/20 12:42 - Notes Notes: PHYSICAL EXAMINATION: Physical Exam: General: Well-nourished well-developed 34-year-old woman in no acute distress HEENT: NC/AT, pupils equal round and reactive to light, MM moist,nares clear, oropharynx clear, airway patent Neck: supple, no adenopathy, no masses. Good range of motion Lungs: clear, no wheezing, no rales no rhonchi CVS: Regular rate and rhythm no murmur gallop or rub Abdomen: Soft, active, nontender, no masses, no hepatosplenomegaly Ext: No edema, clubbing or cyanosis. Neuro: Alert and responsive, moving all 4 extremities on command, cranial nerves intact, no focal findings Skin: Intact no open lesions, no rash Course - Re-evaluation Re-evalutation: 06/17/20 15:59 Patient describes lightheadedness and a sensation as if she is going to pass out. She denies spinning sensation or imbalance. Orthostatic blood pressure are pending at this time, we will start IV fluids and see if the patient has an improvement after better hydration. - Vital Signs Vital signs: Temp Pulse Resp BP Pulse Ox 98.2 F 74 20 118/66 99 06/17/20 15:55 06/17/20 16:03 06/17/20 15:55 06/17/20 16:03 06/17/20 15:55 - Laboratory Results Result Diagrams: 06/17/20 14:12 06/17/20 14:12 Laboratory Results Interpreted: 06/17/20 06/17/20 06/17/20 14:12 14:12 14:12 Hgb 11.0 L Hct 33.6 L MCH 26.5 L Creatinine 1.34 H Est GFR ( Amer) 55 L Est GFR (MDRD) Non-Af 46 L Total Protein 8.3 H Urine Blood MODERATE H Ur Leukocyte Esterase TRACE H Critical Laboratory Results Reviewed: No Critical Results - Radiology Results Critical Radiology Results Reviewed: No Critical Results Discharge - Discharge Clinical Impression: Dizziness, Dehydration Condition: Good Disposition: HOME, SELF-CARE Instructions: Dehydration ([facility]) Additional Instructions: You are seen in the emergency department today with symptoms and signs suggestive of dehydration. You are given 2 L of fluid IV and had some i mprovement. You will need to continue to increase your fluid intake by making sure that you drink at least a liter to a liter half of fluid daily. Follow-up with your primary care doctor if you are having any further difficulties. If your symptoms are worsening or if you have other concerns you may return to the emergency department for further evaluation and treatment HOME CARE INSTRUCTIONS & INFORMATION: Thank you for choosing us for your medical needs. We hope you're satisfied with the care you received. After you leave, you must properly care for your problem and, at the same time, observe its progress. Any condition can change. Some illnesses can change rapidly over hours or days. If your condition worsens, return to the Emergency Department or see your physician promptly. ABOUT YOUR X-RAYS AND EKG'S: If you had an EKG or X-rays taken, they have been read by the Emergency Physician. The X-rays and EKG's will also be read by a Radiologist or Law Enforcement Instructor within 24 hours. If discrepancies are noted, you will be notified by telephone. Please be certain the ED has a correct telephone number & address where you can be reached. Also, realize that some fractures or abnormalities do not show up on initial X-rays. If your symptoms continue, see your physician. ABOUT YOUR LABORATORY TEST: If you had laboratory tests, the results have been reviewed by the Emergency Physician. Some test results (for example cultures) may not be available for several days. You will be contacted if any test result shows you need additional treatment. Please be certain the ED has a correct telephone number and address where you can be reached. ABOUT YOUR MEDICATIONS: You will receive instructions on how to take your medicine on the prescription label you receive. Additional information may be provided by the Pharmacy. If you have questions afterwards, call the ED for clarification or further instructions. Some prescribed medications may cause drowsiness. Do not perform tasks such as driving a car or operating machinery without consulting your Pharmacist. If you feel you need a refill of pain medication, your condition will need re-evaluation. Please do not call for a refill of any medication. ABOUT YOUR SIGNATURE: Signature of this document acknowledges to followin. Understanding that you received emergency treatment and that you may be released before al medical problems are known or treated. Please be certain the ED has a correct phone number & address where you can be reached. 2. Acknowledgement that you will arrange for follow-up care as recommended. 3. Authorization for the Emergency Physician to provide information to your follow-up Physician in order to maximize your care. AT ANY TIME, IF YOUR SYMPTOMS CHANGE SIGNIFICANTLY OR WORSEN OR YOU DEVELOP NEW SYMPTOMS, RETURN TO THE EMERGENCY DEPARTMENT IMMEDIATELY FOR RE-EVALUATION. OUR GOAL IS TO PROVIDE EXCELLENT MEDICAL CARE! WE HOPE THAT WE HAVE MET YOUR EXPECTATIONS DURING YOUR EMERGENCY DEPARTMENT VISIT AND THAT YOU FEEL YOU HAVE RECEIVED EXCELLENT CARE! Forms: Return to Work Referrals: TORY HUERTA, DO [Primary Care Provider] - Follow up as needed
[2020-06-17] MEDS ORDERED: NORMAL SALINE 1000 ML 1,000 ML IV ONE ×2 (16:15→18:10)
[2020-06-17 20:35] VITALS: BP 109/50
--- NOTE | 2020-06-17 22:38 | EKG REPORT ---
SEVERITY:- ABNORMAL ECG - SINUS RHYTHM SINUS ARRHYTHMIA : Confirmed by: Kelton Francis 17-Jun-2020 22:37:51
== END 2020-06-17 20:35 | disposition home or self-care (01) ==
LOC: ER 12:36
DX: E86.0 Dehydration (principal); R42 Dizziness and giddiness
CPT/HCPCS: 93005; 99284; 96360; 96361; 36415; 84703; 85025; 80053; 81001; 93010; J7030